=== PATIENT | female | born 1975 | race Hispanic/Latino ===

== ENCOUNTER 2021-05-10 08:48 | Inpatient (IN) | payer BC, OTHER ==
[~2021-05-10] VITALS: Ht 162.6 cm; Wt 81.6 kg
[2021-05-10 09:24] LABS: BASOPHILS # (AUTO) 0.1 (0.0-0.1); BASOPHILS % 1.1 % (0.0-1.0); EOSINOPHILS # (AUTO) 0.3 (0.0-0.4); HEMATOCRIT 42.5 % (34.2-44.1); HEMOGLOBIN 13.8 g/dL (12.0-16.0); LYMPHOCYTES # (AUTO) 1.4 (1.0-3.2); LYMPHOCYTES % 21.9 % (18.0-39.1); MEAN CORPUSCULAR HEMOGLOBIN 29.9 pg (28-32); MEAN CORPUSCULAR HGB CONC 32.5 g/dL (31-35); MEAN CORPUSCULAR VOLUME 92.2 fL (81-99); MONOCYTES # (AUTO) 0.4 (0.2-0.8); MONOCYTES % 5.7 % (4.4-11.3); NEUTROPHILS # (AUTO) 4.3 (2.1-6.9); NEUTROPHILS % 66.8 % (38.7-80.0); PLATELET COUNT 269 x10e3/uL (140-360); RED BLOOD COUNT 4.61 x10e6/uL (3.6-5.1); RED CELL DISTRIBUTION WIDTH 12.5 % (11.7-14.4)
[2021-05-10 10:11] LABS: ALANINE AMINOTRANSFERASE 35 IU/L (0-55); ALBUMIN/GLOBULIN RATIO 1.3 (0.8-2.0); ALKALINE PHOSPHATASE 77 IU/L (40-150); ANION GAP 17.1 mmol/L (8-16); BLOOD UREA NITROGEN 12 mg/dL (7-26); BUN/CREATININE RATIO 13 (6-25); CALCIUM 8.9 mg/dL (8.4-10.2); CARBON DIOXIDE 23 mmol/L (22-29); CHLORIDE 99 mmol/L (98-107); CREATINE KINASE 39 IU/L (29-168); EST GLOMERULAR FILTRATION RATE 68 ML/MIN (60-); GLUCOSE 398 mg/dL (74-118); MAGNESIUM 1.5 MG/DL (1.3-2.1); POTASSIUM 4.1 mmol/L (3.5-5.1); SODIUM 135 mmol/L (136-145)
[2021-05-10] MEDS ORDERED: ASPIRIN 81 MG CHEW TAB PO STA (11:01)
[2021-05-10] MEDS ORDERED: NITROGLYCERIN 0.4 MG SUBL SL PRN (11:15)
[2021-05-10] MEDS ORDERED: ONDANSETRON HCL INJ 2MG/ML 2ML 2 MG/ML VIAL IV PRN (11:15)
[2021-05-10] MEDS ORDERED: DEXTROSE 50% SYRINGE 50 ML IV PRN (13:45)
[2021-05-10] MEDS: FAMOTIDINE 20 MG/2 ML VIAL IV SCH ×2 (14:05→22:36)
[2021-05-10 15:47] VITALS: BP 129/94
[2021-05-10 16:13] VITALS: BP 129/94
[2021-05-10 16:15] VITALS: BP 129/94
[2021-05-10] MEDS: INSULIN LISPRO 100 UNIT/1 ML 3ML VIAL SQ SCH ×2 (16:19→20:17)
[2021-05-10] MEDS ORDERED: ACETAMINOPHEN 325 MG TAB PO PRN (19:45)
[2021-05-10] MEDS ORDERED: METOPROLOL SUCCINATE 25 MG TAB XL PO SCH (19:45)
[2021-05-10] MEDS ORDERED: ENOXAPARIN INJ 80 MG/0.8 ML SYR SC SCH (19:45)
[2021-05-10 20:00] VITALS: BP 152/84
[2021-05-10] MEDS ORDERED: ATORVASTATIN 20 MG TAB PO SCH (21:00)
[2021-05-10 22:24] LABS: CREATINE KINASE MB 0.2 ng/mL (0-5.0)
[2021-05-11] VITALS: BP 139/83
[2021-05-11 04:00] VITALS: BP 138/80
[2021-05-11] MEDS: MORPHINE SULFATE INJ 2 MG/ML SYR IV PRN ×2 (05:10→16:41)
[2021-05-11 05:38] LABS: BASOPHILS # (AUTO) 0.1 (0.0-0.1); BASOPHILS % 1.2 % (0.0-1.0); EOSINOPHILS # (AUTO) 0.4 (0.0-0.4); EOSINOPHILS % 6.1 % (0.0-6.0); HEMATOCRIT 39.5 % (34.2-44.1); HEMOGLOBIN 12.7 g/dL (12.0-16.0); LYMPHOCYTES % 33.4 % (18.0-39.1); MEAN CORPUSCULAR HEMOGLOBIN 29.7 pg (28-32); MEAN CORPUSCULAR HGB CONC 32.2 g/dL (31-35); MEAN CORPUSCULAR VOLUME 92.3 fL (81-99); MONOCYTES # (AUTO) 0.5 (0.2-0.8); MONOCYTES % 8.4 % (4.4-11.3); NEUTROPHILS # (AUTO) 3.1 (2.1-6.9); NEUTROPHILS % 50.7 % (38.7-80.0); PLATELET COUNT 241 x10e3/uL (140-360); RED BLOOD COUNT 4.28 x10e6/uL (3.6-5.1); RED CELL DISTRIBUTION WIDTH 12.7 % (11.7-14.4)
[2021-05-11 06:42] LABS: ALBUMIN 3.5 g/dL (3.5-5.0); ALBUMIN/GLOBULIN RATIO 1.2 (0.8-2.0); ANION GAP 16.9 mmol/L (8-16); CALCIUM 8.7 mg/dL (8.4-10.2); CREATININE, SERUM 0.82 mg/dL (0.57-1.11); POTASSIUM 3.9 mmol/L (3.5-5.1)
[2021-05-11 07:17] LABS: CREATINE KINASE MB 0.2 ng/mL (0-5.0)
[2021-05-11] MEDS: INSULIN LISPRO 100 UNIT/1 ML 3ML VIAL SQ SCH ×3 (07:30→16:40)
[2021-05-11 08:29] VITALS: BP 140/80
[2021-05-11] MEDS ORDERED: ASPIRIN 81 MG ENTERIC COATED PO SCH (09:00)
[2021-05-11 10:44] VITALS: BP 140/80
[2021-05-11 12:39] VITALS: BP 137/85
[2021-05-11] MEDS: FAMOTIDINE 20 MG/2 ML VIAL IV SCH (12:49)
[2021-05-11] MEDS ORDERED: ONDANSETRON HCL 4 MG ORAL DISINTEGRATING TAB PO PRN (14:15)
[2021-05-11 15:47] VITALS: BP 140/86
[2021-05-11] MEDS ORDERED: METOPROLOL TART25 MG PO (17:37)
[2021-05-11] MEDS ORDERED: JANUVIA50 MG PO (17:39)
[2021-05-11] MEDS ORDERED: METFORMIN HCL500 MG PO (17:39)
[2021-05-11] MEDS ORDERED: ATORVASTATIN 40 MG TAB PO SCH (21:00)
[2021-05-12] MEDS ORDERED: MUPIROCIN 2% OINT 22 GM TUBE TOP SCH (09:00)
== END 2021-05-11 18:54 | disposition home or self-care (01) | DRG 311 ==
LOC: ER 10:17 → ERHOLD 11:18 → MED/SURG 15:14 → OBSVTOIN 05-11 16:07
PROVIDERS: ADMIT Internal Medicine; ATTEND Internal Medicine
DX: I20.0 Unstable angina (principal); E87.2 Acidosis; R07.9 Chest pain, unspecified; I10 Essential (primary) hypertension; E78.5 Hyperlipidemia, unspecified; E11.65 Type 2 diabetes mellitus with hyperglycemia; E11.69 Type 2 diabetes mellitus with other specified complication; Z79.84 Long term (current) use of oral hypoglycemic drugs
CPT/HCPCS: 36415; 71045; 78452; 80053; 80061; 82550; 82553; 82948; 83036; 83735; 83880; 84443; 84484; 84702; 85025; 93005; 93017; 93306; 99251; 99284; A9502; G0378; J1650; J2270; U0002